=== PATIENT | male | born 1985 | race Caucasian/White ===

== ENCOUNTER 2020-09-13 14:35 | Emergency (ER) | payer SELFPAY ==
[2020-09-13 14:54] VITALS: BMI 31.1
[2020-09-13] MEDS ORDERED: ACETAMINOPHEN 1000 MG/100 ML VIAL (NON FORMULARY) IVPB ONE (14:59)
[2020-09-13] MEDS ORDERED: ONDANSETRON 4 MG/2 ML VIAL IVPUSH ONE (15:34)
[2020-09-13] MEDS ORDERED: ACETAMINOPHEN INJECTION 100 ML IVPB ONE (15:55)
[2020-09-13] MEDS ORDERED: ONDANSETRON 4 MG/2 ML VIAL ONE (16:04)
[2020-09-13 16:06] LABS: VENOUS O2 SATURATION 83.5 % (70-80); VENOUS PCO2 36.1 mmHg (38-52); VENOUS PH 7.48 (7.310-7.410)
[2020-09-13 16:14] LABS: BASO % 0.3 % (0-2.0); HEMATOCRIT 41.3 % (35.4-49); HEMOGLOBIN 14.1 GM/dL (11.7-16.9); MCH 26.5 pg (25.7-33.7); MCHC 34.2 g/dl (32.0-35.9); MEAN CELL VOLUME 77.5 fl (80-96); MEAN PLT VOLUME 8.6 fl (7.5-11.1); MONO % 6.6 % (3.8-10.2); NEUT % 76.1 % (42.8-82.8); PLATELET COUNT 169 K/MM3 (134-434); RBC 5.33 M/mm3 (4.00-5.60); RDW 13.5 % (11.9-15.9); WHITE BLOOD COUNT 5.7 K/mm3 (4.0-10.0)
[2020-09-13 16:21] LABS: INR 1.18 (0.83-1.09); PROTHROMBIN TIME (PATIENT) 14.4 SEC (9.7-13.0)
[2020-09-13 16:24] LABS: CHLORIDE 99 mmol/L (98-107); SODIUM 132 mmol/L (136-145)
[2020-09-13 16:26] LABS: ALBUMIN 3.5 g/dl (3.4-5.0); CALCIUM 7.8 mg/dL (8.5-10.1)
[2020-09-13 16:27] LABS: ANION GAP 7 MMOL/L (8-16); BLOOD UREA NITROGEN 7.1 mg/dL (7-18); CO2 26 mmol/L (21-32); GLUCOSE,RANDOM 105 mg/dL (74-106)
[2020-09-13 16:29] LABS: BILIRUBIN,DIRECT 0.2 mg/dL (0.0-0.2)
[2020-09-13 16:30] LABS: CREATININE 0.9 mg/dL (0.55-1.3); SGOT/AST 65 U/L (15-37)
[2020-09-13 16:31] LABS: BILIRUBIN,TOTAL 0.5 mg/dL (0.2-1); TOT PROT 7.1 g/dl (6.4-8.2)
[2020-09-13 16:32] LABS: ALK PHOS 47 U/L (45-117)
[2020-09-13 16:33] LABS: LDH 457 U/L (87-246)
[2020-09-13 16:38] LABS: SGPT/ALT 48 U/L (13-61)
[2020-09-13] MEDS ORDERED: LACTATED RINGERS SOLUTION 1000 ML INFUS.BAG IV ONE ×2 (16:40→17:45)
[2020-09-13 17:24] VITALS: TEMP 100.2
[2020-09-13 20:34] VITALS: BP 132/88; PULSE 88
== END 2020-09-13 20:34 | disposition home or self-care (01) ==
LOC: JER 14:35
PROC: 3E0333Z Introduction of Anti-inflammatory into Peripheral Vein, Percutaneous Approach (ICD-10-PCS; principal; 2020-09-13)
PROC: 3E033GC Introduction of Other Therapeutic Substance into Peripheral Vein, Percutaneous Approach (ICD-10-PCS; 2020-09-13)
DX: U07.1 COVID-19 (principal); R50.9 Fever, unspecified; R11.11 Vomiting without nausea
CPT/HCPCS: 36415; 71045-TC-FY; 80053; 82248; 82550; 82553; 82728; 82803; 83605; 83615; 84484; 85025; 85610; 85730; 86140; 87040; 87804; 93005; 93010; 99285-25; C9803; J0131; U0003; U0005

== ENCOUNTER 2024-02-09 00:28 | Emergency (ER) | payer SELFPAY ==
[2024-02-09 00:35] VITALS: TEMP 99.1; BMI 34.9
[2024-02-09 01:01] VITALS: RESP 18
[2024-02-09] MEDS ORDERED: KETOROLAC TROMETHAMINE 30 MG/1 ML VIAL ONE (01:06)
[2024-02-09] MEDS ORDERED: LIDOCAINE 5% TOPICAL PATCH ONE (01:06)
[2024-02-09] MEDS ORDERED: ACETAMINOPHEN 500 MG TABLET (FP) ONE (01:19)
[2024-02-09] MEDS: KETOROLAC TROMETHAMINE 30 MG/1 ML VIAL IM ONE (01:24)
[2024-02-09] MEDS: ACETAMINOPHEN 500 MG TABLET (FP) PO ONE (01:24)
[2024-02-09] MEDS: LIDOCAINE 5% TOPICAL PATCH TP ONE (01:24)
[2024-02-09 03:13] VITALS: BP 126/73; PULSE 83
[2024-02-09] MEDS ORDERED: LIDOCAINE PATCH REMOVAL MC SCH (22:00)
== END 2024-02-09 04:59 | disposition home or self-care (01) ==
LOC: JER 00:28
PROC: 3E0233Z Introduction of Anti-inflammatory into Muscle, Percutaneous Approach (ICD-10-PCS; principal; 2024-02-09)
DX: S16.1XXA Strain of muscle, fascia and tendon at neck level, initial encounter (principal); R42 Dizziness and giddiness; R06.02 Shortness of breath; R20.0 Anesthesia of skin; R53.1 Weakness; X50.1XXA Overexertion from prolonged static or awkward postures, initial encounter
CPT/HCPCS: 72125-TC; 93005; 93010; 99284-25